=== PATIENT | female | born 1995 | race Two or more races ===

== ENCOUNTER 2021-10-19 18:16 | Emergency (ER) | payer OTHER ==
[2021-10-19 18:33] VITALS: BP 137/86; PULSE 105; RESP 18; TEMP 98.1; BMI 27.4
[2021-10-19] MEDS ORDERED: KETOROLAC TROMETHAMINE 30 MG/1 ML VIAL IM ONE (20:19)
[2021-10-19] MEDS ORDERED: METHOCARBAMOL 500 MG TABLET PO ONE (20:20)
[2021-10-19] MEDS ORDERED: METHOCARBAMOL 500 MG TABLET ONE (22:45)
[2021-10-19] MEDS ORDERED: KETOROLAC TROMETHAMINE 30 MG/1 ML VIAL ONE (22:45)
== END 2021-10-19 23:55 | disposition home or self-care (01) ==
LOC: JER 18:16
PROC: 3E0233Z Introduction of Anti-inflammatory into Muscle, Percutaneous Approach (ICD-10-PCS; principal; 2021-10-19)
DX: M54.2 Cervicalgia (principal); V49.40XA Driver injured in collision with unspecified motor vehicles in traffic accident, initial encounter
CPT/HCPCS: 70450-TC; 72125-TC; 99284-25

== ENCOUNTER 2022-08-26 19:29 | Emergency (ER) | payer OTHER ==
[2022-08-26 19:36] VITALS: BP 114/70; PULSE 84; RESP 16; TEMP 98.4; BMI 24.8
[2022-08-26] MEDS ORDERED: CLINDAMYCIN HCL 150 MG CAPSULE (FP) PO ONE (20:15)
[2022-08-26] MEDS ORDERED: CLINDAMYCIN HCL 150 MG CAPSULE (FP) ONE (20:16)
== END 2022-08-26 20:22 | disposition home or self-care (01) ==
LOC: JERFT 19:29
DX: L03.031 Cellulitis of right toe (principal); L03.115 Cellulitis of right lower limb; M79.671 Pain in right foot; M79.674 Pain in right toe(s); L98.9 Disorder of the skin and subcutaneous tissue, unspecified
CPT/HCPCS: 99283-25

== ENCOUNTER 2023-05-26 11:22 | Emergency (ER) | payer OTHER ==
[2023-05-26 11:27] VITALS: BMI 25.0
[2023-05-26 12:19] LABS: BASO % 1.3 % (0-2.0); EOS % 0.7 % (0-4.5); HEMATOCRIT 39.6 % (32.4-45.2); HEMOGLOBIN 12.2 GM/dL (10.7-15.3); MCHC 30.7 g/dl (32.0-36.0); MEAN CELL VOLUME 71.4 fl (80-96); MEAN PLT VOLUME 9.6 fl (7.5-11.1); MONO % 9.1 % (3.8-10.2); NEUT % 59.9 % (42.8-82.8); PLATELET COUNT 318 10^3/uL (134-434); RBC 5.54 M/mm3 (3.60-5.2); RDW 14.5 % (11.6-15.6); WHITE BLOOD COUNT 8.9 K/mm3 (4.0-10.0)
[2023-05-26 12:31] LABS: POTASSIUM 4.2 mmol/L (3.5-5.1)
[2023-05-26 12:33] LABS: CALCIUM 9.3 mg/dL (8.5-10.1)
[2023-05-26 12:34] LABS: ALBUMIN 3.8 g/dl (3.4-5.0); BLOOD UREA NITROGEN 10.9 mg/dL (7-18)
[2023-05-26 12:36] LABS: EPI CELLS >36 /uL (0-25.1); HYALINE CASTS 0 /uL (0-3.1); PH,URINE 6.5 (5.0-8.0); URINE APPEARANCE TURBID; URINE BILIRUBIN 1+ (NEGATIVE); URINE COLOR RED; URINE GLUCOSE (UA) NEGATIVE (NEGATIVE); URINE KETONE NEGATIVE (NEGATIVE); URINE LEUK ESTERASE 1+ (NEGATIVE); URINE NITRITE POSITIVE (NEGATIVE); URINE PROTEIN 2+ (NEGATIVE); URINE UROBILINOGEN 0.2 mg/dL (0.2-1.0); URINE WBC 28 /uL (0-25.8)
[2023-05-26 12:37] LABS: CREATININE 0.8 mg/dL (0.55-1.3); URINE BACTERIA 16.4 /uL (0-1359); URINE RBC 48485.8 /uL (0-23.9)
[2023-05-26 12:38] LABS: YEAST NEGATIVE (NEGATIVE)
[2023-05-26 12:39] LABS: BILIRUBIN,TOTAL 0.5 mg/dL (0.2-1); TOT PROT 8.2 g/dl (6.4-8.2)
[2023-05-26] MEDS ORDERED: ACETAMINOPHEN 500 MG TABLET (FP) ONE (14:34)
[2023-05-26] MEDS: ACETAMINOPHEN 500 MG TABLET (FP) PO ONE (14:38)
[2023-05-26 15:09] VITALS: BP 121/74; PULSE 76; RESP 16; TEMP 97.9
== END 2023-05-26 15:09 | disposition home or self-care (01) ==
LOC: JER 11:22
DX: O20.9 Hemorrhage in early pregnancy, unspecified (principal); Z3A.00 Weeks of gestation of pregnancy not specified
CPT/HCPCS: 36415; 76817-TC; 80053; 81003; 84702; 85025; 86850; 86900; 86901; 87086; 99284-25

== ENCOUNTER 2023-10-11 23:52 | Emergency (ER) | payer SELFPAY ==
[2023-10-12 00:01] VITALS: BP 124/74; PULSE 80; RESP 18; TEMP 98.2; BMI 24.3
[2023-10-12] MEDS ORDERED: ACETAMINOPHEN 325 MG TABLET (FP) ONE (00:37)
[2023-10-12] MEDS: ACETAMINOPHEN 500 MG TABLET (FP) PO ONE (00:40)
== END 2023-10-12 01:52 | disposition home or self-care (01) ==
LOC: JER 23:52
DX: M79.674 Pain in right toe(s) (principal); W22.8XXA Striking against or struck by other objects, initial encounter; Y93.39 Activity, other involving climbing, rappelling and jumping off
CPT/HCPCS: 73630-TC-RT-FY; 99283-25